=== PATIENT | female | born 1950 | race Caucasian/White ===

== ENCOUNTER → 2025-01-30 10:09 | Outpatient (REF) | payer MEDICARE, OTHER, SELFPAY | LOC: HWRAD 10:09 | PROVIDERS: ATTENDING PHYSICIAN Family Medicine | DX: I83.899 Varicose veins of unspecified lower extremity with other complications (principal); R22.42 Localized swelling, mass and lump, left lower limb | CPT/HCPCS: 93971 ==

== ENCOUNTER 2025-04-15 09:34 | Emergency (ER) | payer MEDICARE, OTHER, SELFPAY ==
[2025-04-15 09:36] VITALS: BP 181/91
--- NOTE | 2025-04-15 11:05 | EDRN ---
Santiago TELLES in room w/ pt at this time.
--- NOTE | 2025-04-15 11:37 | ED.GENMED ---
History of Present Illness
General
Chief Complaint: Musculo-Skeletal Complaint
Source: patient
Exam Limitations: none
Time Seen by Provider: 04/15/25 10:31
Nursing documentation reviewed up to this point in time: agreed with
History of Present Illness
History of Present Illness:
see MDM
Phy Exam
Physical Exam
Physical Exam:
see MDM
Course
Orders/Labs/Results
Orders:
Orders
04/15/25 11:07
CT Head & Neck Angio W/wo IV Urgent
Comment:
Reason For Exam: R neck pain, severe, headache
HYDROmorphone [Dilaudid] 0.25 mg IV NOW STA
04/15/25 11:41
Complete Blood Count/With Diff Urgent
Comprehensive Metabolic Panel Urgent
PTT Urgent
Prothrombin Time Urgent
04/15/25 14:06
Prednisone [Deltasone] 50 mg PO NOW STA
04/15/25 14:19
Hydrocodone 5/APAP 325 [[place] 5/325] 1 tablet PO NOW STA
Abnormal Lab Results
04/15/25
11:41
RBC 4.00 L 10^6/uL
(4.20-5.40)
Hct 36.6 L %
(37.0-47.0)
MCH 31.8 H pg
(27.0-31.0)
Plt Count 418 H 10^3/uL
(130-400)
Absolute Monos (auto) 1.1 H 10^3/uL
(0.1-0.6)
Absolute Eos (auto) 0.8 H 10^3/uL
(0-0.7)
Lymphocytes % 16.9 L %
(20.5-51.1)
Monocytes % 14.7 H %
(1.7-9.3)
Eosinophils % 10.5 H %
(0-6)
Sodium 130 L mmol/L
(135-145)
BUN 52 H mg/dl
(7-17)
Creatinine 1.2 H mg/dL
(0.6-1.0)
Calcium 10.6 H mg/dl
(8.4-10.2)
04/15/25 11:41
04/15/25 11:41
Vital Signs
Initial and Last Documented VS:
Initial Vital Signs
Temp Pulse Resp BP Pulse Ox
36.5 C 66 16 181/91 98
04/15/25 09:36 04/15/25 09:36 04/15/25 09:36 04/15/25 09:36 04/15/25 09:36
Last Documented Vital Signs
Temp Pulse Resp BP Pulse Ox
36.5 C 61 16 180/91 100
04/15/25 09:36 04/15/25 14:32 04/15/25 13:21 04/15/25 14:32 04/15/25 14:32
MDM/Problems Addressed
Differential Diagnosis Includes:
see MDM
MDM/Problems Addressed:
Note:
CHIEF COMPLAINT(S)
Neck pain and headache for 10 days.
HISTORY OF PRESENT ILLNESS
The patient is an adult female who presents with neck pain and headache persisting for the last 10 days. She describes the neck pain as resembling stiffness when 'you sleep wrong,' but notes, 'You look like youre turning pretty well. I feel, yeah.
Its not that.' The pain appears to be worse in the second half of the day. She mentions that the pain is severe and scary, stating, 'How bad is the headache? What kind of you reading this sentence? The worst came in your life? It was. Right now, its
not, its still bad. Its scary. Its very scary.' She reports waking up in the night due to the pain. The patient tried [id number] medications but has not found significant relief. She denies blurred vision, dizziness, slurred speech, confusion,
facial numbness, buzzing in her ear, hearing loss, or any history of aneurysms. The patients has had recent retinal surgery, which she says has made her more active than usual. She mentions chronic venous insufficiency and a past incident
where she was evaluated for potential superficial thrombophlebitis, though her current symptoms do not include swelling or warmth. The patients past history includes seeing an orthopedist and undergoing physical therapy years ago.
PAST MEDICAL AND SURIGICAL HISTORY
Venous insufficiency with past medical evaluation for superficial thrombophlebitis.
CHRONIC MEDICAL CONDITIONS SIGNIFICANTLY AFFECTING CARE
Chronic venous insufficiency.
MEDICATIONS
Cholesterol medication.
REVIEW OF SYSTEMS
- Neurological: Denies blurred vision, dizziness, slurred speech, confusion, facial numbness, buzzing in the ear, hearing loss, history of aneurysms.
- Musculoskeletal: Severe neck pain, some perceived stiffness.
- Vascular: History of venous insufficiency.
PHYSICAL EXAM
GENERAL: Alert , in no apparent distress
HEAD: NCAT
EYE: pupils equal and reactive, no nystagmus, minimal photophobia
NECK: patient is moving her head and neck quite easily, she does not have torticollis, right lateral rotation causes minimal discomfort but the most discomfort out of all the ranges of motion of her neck, she has right paraspinal and trapezial
muscle tenderness, no obvious spasm
CARDIAC: Regular rate and rhythm . no edema
LUNGS: Clear breath sounds bilaterally, no acute respiratory distress, no wheezes/rales/rhonchi
NEUROLOGICAL: Alert and orientedx 4, cn intact, no facial asymmetry, 5/5 strength in UE/LE, sensation intact, romberg neg, ambulates without assistance, neg pronator drift
SKIN: Warm and dry, skin intact.
PSYCH: Normal and appropriate interaction.
PLAN
1. Administer intravenous pain medication to assess pain relief.
2. Perform blood work.
3. Conduct a CT scan to rule out vascular emergencies such as an aneurysm or dissection.
4. Evaluate the efficacy of IV pain management and adjust if necessary.
5. Consider outpatient follow-up with an orthopedist if no emergent conditions are identified.
DIFFERENTIAL DIAGNOSIS
The Differential Diagnosis includes, in no particular order and is not limited to:
1. Cervical muscle spasm
2. Cervical spondylosis
3. Cervical radiculopathy
4. Carotid artery dissection
5. Vertebral artery dissection
6. Cervical myofascial pain syndrome
7. Referred pain from temporomandibular joint disorder
8. Occipital neuralgia
9. Tension-type headache
10. Migraine without aura
CARE-UPDATE
04/15/25 - 13:24
The patient reports a significant decrease in pain levels. Currently experiences mild pressure sensation but is generally feeling well. Awaiting test results to assess further course of action. No additional immediate needs expressed by the patient.
74-year-old female with atraumatic right sided neck pain into her right shoulder without numbness tingling or weakness for about 10 days without any initiating injury. She does have chronic arthritis in her lower back and was on gabapentin and
steroids for period of time. She has had neck pain and been told she has arthritis in her neck but has not had neck problems for a while. She also now has a headache in the back of her head at times which is dull and 4 out of 10 and is not
positional. The pain in her neck sometimes is a 10 out of 10, she cannot get comfortable. She had no manipulation of her neck recently and she has no blurred vision, double vision, dizziness, weakness, buzzing in her ear etc. On exam she is quite
nervous, she has tenderness to her trapezius and paraspinal muscles on the right but very preserved decent range of motion, neurovascularly intact given her age and severity of her discomfort as well as her headache I did opt to CTA her head and
neck. These showed some cervical disc disease as well as chronic sinusitis but no vascular abnormalities. Patient feels much better after Dilaudid. Dilaudid was wearing off slightly but we will give her a dose of oral pain medicine and prednisone
before she goes. She was told symptoms to return, she will follow-up with her orthopedic and pain specialist
Prednisone x 5 days, Vicodin for pain, stool softener
*Pulse Oximetry
SaO2: 98
Oxygen Mode of Delivery: Room air
Patient hypoxic: no (100)
*Critical Care Note
Total Time (30-74mins, 75-104mins- exclusive of procedures): Not Applicable
ED Attending Note
-
Portions of this chart may have been created with voice recognition software.� Occasional wrong word or��sound alike� substitutions may have occurred due to the inherent limitations of voice recognition software.
Discharge Plan
Departure
Patient Disposition: Home (Routine Discharge)
Date of Disposition: 04/15/25
Time of Disposition: 14:19
Patient with high blood pressure during this ER visit?: Yes
Condition: Fair
Covid-19: Not Applicable
Discharge Problem:
Neck pain, Degenerative disc disease, cervical
Instructions: Degenerative disc disease - ED (DC)
Prescriptions:
New
prednisone 50 mg tablet
50 mg PO DAILY Qty: 4 0RF
hydrocodone-acetaminophen 5-325 mg tablet
1 tab PO Q8H PRN (Reason: Pain) Qty: 11 0RF
Referrals:
Richy Fernandez MD [Active, Orthopedics] - Follow up in 1 week
CORINNE PEREZ DC [Family Provider, Chiropractic]
Activity Restrictions/Additional Instructions:
Your neck pain does seem musculoskeletal. You have severe degenerative changes between C4 and C5 and moderate narrowing between C5 and C6 and C6 and C7 which can predispose you for pinched nerves or disc herniations. Try using prednisone once a
day for 5 days to see if this helps your pain. For additional pain you could use Vicodin every 6 hours, this has a Tylenol in it, it is a narcotic and should be taken with a stool softener
If the pain is not severe you could do regular Tylenol instead. He should probably avoid ibuprofen while you are on steroids.
You can apply heat or ice or lidocaine patches as well. Follow-up with your family doctor this week, you could also see orthopedics. They may refer you to physical therapy or for further diagnostic tools like an MRI. Return for weakness or
numbness in your arms or legs, severe pain, fever or chills, severe headache or any concerns. Incidentally you also had sinus mucosal thickening. You should probably take Flonase nasal spray which is [id number] and Zyrtec daily. You have no
concerns for a vascular problem
Your blood work showed you were mildly dehydrated, drink more fluids. Follow-up with your family doctor
Interventions
Interventions:
*Risk Screen - Suicide Last Done: 04/15/25 09:36
*General Assessment Last Done: 04/15/25 10:08
*Neglect/Abuse Screening Last Done: 04/15/25 09:36
*ED- Fall Risk Assessment Last Done: 04/15/25 10:08
*ED COVID-19 Vaccine History Last Done: 04/15/25 10:08
*ED Influenza Vaccine History Last Done: 04/15/25 10:08
*Nursing Disposition Last Done: 04/15/25 14:48
ED-Musculoskeletal Assessment Last Done: 04/15/25 10:10
Discharge Date and Time
Discharge Date/Time: 04/15/25 14:48
Print Language: [place]
[2025-04-15] MEDS: DILAUDID 0.25 MG IV (11:38)
[2025-04-15 11:54] VITALS: BMI 23.3
[2025-04-15 11:58] VITALS: BP 172/86
[2025-04-15 12:00] LABS: INR 0.91; PT 12.6 Sec (11.4-14.6)
[2025-04-15 12:01] LABS: APTT 34.5 Sec (23.4-35.0)
[2025-04-15 12:09] LABS: Hematocrit 36.6 % (37.0-47.0); Hemoglobin 12.7 g/dL (12.0-16.0); Mean Corp Hgb Conc. 34.7 g/dL (33.0-37.0); Mean Corpuscular Volume 91.5 fL (81.0-99.0); Nucleated Red Blood Cells % 0 %; Platelet Count 418 10^3/uL (130-400); Red Cell Dist. Width 11.9 % (11.5-14.5)
[2025-04-15 12:12] LABS: ALT (SGPT) 19 U/L (0-35); AST (SGOT) 29 U/L (14-36); Albumin 4.5 g/dl (3.5-5.0); Alkaline Phosphatase 89 U/L (38-126); Blood Urea Nitrogen 52 mg/dl (7-17); Calcium 10.6 mg/dl (8.4-10.2); Carbon Dioxide 24 mmol/L (22-30); Chloride 99 mmol/L (98-107); Estimated Creatinine Clearance 29 ml/min; Glucose 93 mg/dl (70-99); Potassium 4.9 mmol/L (3.5-5.1); Sodium 130 mmol/L (135-145); Total Protein 7.8 g/dl (6.3-8.2); eGFR 47.50
[2025-04-15 13:22] VITALS: BP 183/85
--- NOTE | 2025-04-15 13:24 | EDRN ---
Santiago TELLES in room w/ pt at this time.
[2025-04-15 14:32] VITALS: BP 180/91
[2025-04-15] MEDS: NORCO 5/325 1 TABLET PO (14:41)
[2025-04-15] MEDS: DELTASONE 50 MG PO (14:41)
== END 2025-04-15 14:48 | disposition home or self-care (01) ==
LOC: EMR 09:34
PROVIDERS: Physician Assistant; EMERGENCY PHYSICIAN Emergency Medicine; FAMILY PHYSICIAN Chiropractor Neurology
DX: M50.30 Other cervical disc degeneration, unspecified cervical region (principal); J32.9 Chronic sinusitis, unspecified; R03.0 Elevated blood-pressure reading, without diagnosis of hypertension; I87.2 Venous insufficiency (chronic) (peripheral); M47.812 Spondylosis without myelopathy or radiculopathy, cervical region; M47.816 Spondylosis without myelopathy or radiculopathy, lumbar region
CPT/HCPCS: 99284; 96374; 70496; 70498; 80053; 85025; 85610; 85730; Q9967